=== PATIENT | female | born 1995 | race Two or more races ===

== ENCOUNTER 2019-02-24 13:15 | Emergency (ER) | payer OTHER ==
[~2019-02-24] VITALS: Ht 152.4 cm; Wt 64.4 kg
== END 2019-02-24 16:17 | disposition home or self-care (01) ==
LOC: ER 13:15
DX: B37.3 Candidiasis of vulva and vagina (principal); N39.0 Urinary tract infection, site not specified

== ENCOUNTER → 2019-05-19 | Emergency (ER) | payer OTHER ==
[~2019-05-19] VITALS: Ht 152.4 cm; Wt 63.5 kg
[~2019-05-19] MED LIST: TUSNEL LIQUID178 ML PO; ZITHROMAX500 MG PO
== END | disposition home or self-care (01) ==
LOC: ER 00:03
DX: J45.998 Other asthma (principal)

== ENCOUNTER 2022-10-17 02:48 | Emergency (ER) | payer OTHER ==
[~2022-10-17] VITALS: Ht 152.4 cm; Wt 67.1 kg
[2022-10-17] MEDS ORDERED: CEPHALEXIN500 MG PO (03:46)
[2022-10-17] MEDS ORDERED: CLOTRIMAZOLE30 ML TOP (03:46)
[2022-10-17] MEDS ORDERED: KETO10TA2 PO ×2 (03:46)
== END 2022-10-17 03:50 | disposition home or self-care (01) ==
LOC: ER 02:48
DX: M79.644 Pain in right finger(s) (principal)

== ENCOUNTER 2023-05-12 08:34 | Emergency (ER) | payer OTHER ==
[~2023-05-12] VITALS: Ht 152.4 cm; Wt 68.0 kg
[~2023-05-12 08:34] MED LIST changes: +CEPHALEXIN500 MG PO; +CLOTRIMAZOLE30 ML TOP; +KETO10TA2 PO
== END 2023-05-12 09:53 | disposition home or self-care (01) ==
LOC: ER 08:34
DX: T78.3XXA Angioneurotic edema, initial encounter (principal)

== ENCOUNTER 2024-04-11 18:10 | Emergency (ER) | payer OTHER ==
[~2024-04-11] VITALS: Ht 152.4 cm; Wt 68.9 kg
[2024-04-11] MEDS ORDERED: METHYLPREDNISOLONE SOD SUCC 40 MG VIAL ONE (18:42)
[2024-04-11] MEDS ORDERED: LEVALBUTEROL HCL 0.63 MG/3 ML SOLUTION IH ONE ×2 (18:45→18:57)
[2024-04-11] MEDS ORDERED: BENZONATATE 100 MG CAPSULE PO ONE (18:45)
[2024-04-11] MEDS ORDERED: METHYLPREDNISOLONE SOD SUCC 40 MG VIAL IM ONE (18:45)
[2024-04-11 18:54] LABS: HEMATOCRIT 40.1 % (36.0-45.00); HEMOGLOBIN 13.9 g/dL (12.0-15.00); MEAN CELL VOLUME 88.8 fL (80.00-100.00); MEAN CORPUSCULAR HEMOGLOBIN 30.9 pg (27.00-32.0); MEAN CORPUSCULAR HGB CONC 34.8 g/dl (32.0-36.0); PLATELET COUNT 291 K/uL (150-450); RED BLOOD COUNT 4.52 M/uL (4.00-6.00); RED CELL DISTRIBUTION WIDTH 12.6 % (11.5-14.5)
[2024-04-11] MEDS ORDERED: BENZONATATE200 M1 PO (19:58)
[2024-04-11] MEDS ORDERED: LEVALBUTER0.63 MG/3 IH (19:58)
[2024-04-11] MEDS ORDERED: MONTELUKAST SODI4 M1 PO (19:58)
== END 2024-04-11 20:12 | disposition home or self-care (01) ==
LOC: ER 18:12
PROVIDERS: General Practice
DX: J00 Acute nasopharyngitis [common cold] (principal); Z88.8 Allergy status to other drugs, medicaments and biological substances; J45.909 Unspecified asthma, uncomplicated; Z20.822 Contact with and (suspected) exposure to COVID-19
CPT/HCPCS: 36415; 94640; 96372; 99283; J3490

== ENCOUNTER 2025-05-22 15:24 | Emergency (ER) | payer OTHER ==
[~2025-05-22] VITALS: Ht 152.4 cm; Wt 68.0 kg
[~2025-05-22 15:24] MED LIST changes: +BENZONATATE200 M1 PO; +LEVALBUTER0.63 MG/3 IH; +MONTELUKAST SODI4 M1 PO
[2025-05-22] MEDS ORDERED: CETIRIZINE HCL 10 MG TABLET PO ONE (16:30)
[2025-05-22] MEDS ORDERED: RINGERS SOLUTION,LACTATED 1,000 ML IV ONE (16:30)
[2025-05-22] MEDS ORDERED: IPRATROPIUM BROMIDE 0.5 MG/2.5 ML AMPUL.NEB IH ONE ×2 (16:30→17:30)
[2025-05-22] MEDS ORDERED: CETIRIZINE HCL 5MG/5ML BLIST.PACK PO ONE (16:57)
[2025-05-22 17:20] LABS: BASO % 0.6 % (0.1-1.2); EOS # 0.13 (0.04-0.54); EOS % 1.6 % (0.7-7.0); LYMPH # 1.28 (1.18-3.74); LYMPH % 15.3 % (19.3-53.1); MEAN PLATELET VOLUME 9.70 fl (9.4-12.4); MONO # 1.12 (0.24-0.82); NEUT # 5.78 (1.56-6.13); NEUT % 68.9 % (34.0-71.1); RED CELL DISTRIBUTION WIDTH 12.1 % (11.6-14.4)
[2025-05-22] MEDS ORDERED: LEVALBUTEROL HCL 1.25 MG/3 ML SOLUTION IH ONE (17:30)
[2025-05-22 17:31] LABS: MONO % 13.4 % (4.7-12.5)
[2025-05-22 17:50] LABS: ALT/SGPT 44.0 U/L (12-78); AST/SGOT 28.0 U/L (15-37); BILIRUBIN TOTAL 0.33 mg/dL (0.3-1.2); BUN CREA RATIO 6.0 (7.0-25.0); CREATININE SERUM 0.99 mg/dL (0.55-1.02); GFR 66.79; GLOBULINA 4.4 G/DL (2.4-3.5); GLUCOSE FASTING 94.0 mg/dL (65-100); OSMOLALITY SERUM 277.0 MOSM/KG (275-295)
[2025-05-22 18:24] LABS: COVID-19 AG NEGATIVE (NEGATIVE)
[2025-05-22] MEDS ORDERED: ALLERGY RELIE15.8 ML NASAL (19:41)
[2025-05-22] MEDS ORDERED: ZYRTEC10 MG PO (19:41)
[2025-05-22] MEDS ORDERED: ZITHROMAX TRI-500 MG PO (19:41)
== END 2025-05-22 20:36 | disposition home or self-care (01) ==
LOC: ER 15:25
PROVIDERS: Student in an Organized Health Care Education/Training Program
DX: B34.9 Viral infection, unspecified (principal); J01.90 Acute sinusitis, unspecified; Z20.822 Contact with and (suspected) exposure to COVID-19

== ENCOUNTER 2025-06-05 08:18 | Emergency (ER) | payer OTHER ==
[~2025-06-05] VITALS: Ht 152.4 cm; Wt 68.0 kg
[~2025-06-05 08:18] MED LIST changes: +ALLERGY RELIE15.8 ML NASAL; +ZITHROMAX TRI-500 MG PO; +ZYRTEC10 MG PO
[2025-06-05] MEDS ORDERED: FAMOtidine 10 MG/ML (4ML VIAL) IV ONE (09:15)
[2025-06-05] MEDS ORDERED: 0.9 % SODIUM CHLORIDE 1,000 ML IV ONE (09:15)
[2025-06-05] MEDS ORDERED: ONDANSETRON HCL 2 MG/ML VIAL IV ONE (09:15)
[2025-06-05] MEDS ORDERED: KETOROLAC TROMETHAMINE 30 MG VIAL IV ONE (09:15)
[2025-06-05 09:28] LABS: BASO % 0.3 % (0.1-1.2); EOS # 0.05 (0.04-0.54); EOS % 0.3 % (0.7-7.0); LYMPH # 0.44 (1.18-3.74); LYMPH % 2.9 % (19.3-53.1); MEAN PLATELET VOLUME 9.70 fl (9.4-12.4); MONO # 0.65 (0.24-0.82); MONO % 4.3 % (4.7-12.5); NEUT # 13.77 (1.56-6.13); NEUT % 91.7 % (34.0-71.1); RED CELL DISTRIBUTION WIDTH 11.7 % (11.6-14.4)
[2025-06-05 09:56] LABS: INR 1.04
[2025-06-05 09:57] LABS: URINE APPEARANCE Clear; URINE BILIRRUBIN Negative (NEGATIVE); URINE BLOOD Large; URINE COLOR Yellow; URINE GLUCOSE Negative (NEGATIVE); URINE KETONE Trace (NEGATIVE); URINE LEUKOCYTE Trace; URINE NITRATE Negative; URINE PROTEIN Negative (NEGATIVE); URINE UROBILINOGEN 1.0 E.U./dl
[2025-06-05 09:59] LABS: ALT/SGPT 49 U/L (12-78); AST/SGOT 25 U/L (15-37); BILIRUBIN TOTAL 1.29 mg/dL (0.3-1.2); BUN CREA RATIO 16 (7.0-25.0); CREATININE SERUM 0.83 mg/dL (0.55-1.02); GFR 81.86; GLOBULINA 4.3 G/DL (2.4-3.5); GLUCOSE FASTING 121 mg/dL (65-100); OSMOLALITY SERUM 275 MOSM/KG (275-295)
[2025-06-05 10:01] LABS: URINE BACTERIA 279.5 uL (0.0-1933); URINE EPITHELIAL CELLS 33.9 uL (0.0-38.8); URINE RBC 8.2 uL (0.0-20.8); URINE WBC 11.0 uL (0.0-23.2)
[2025-06-05 10:02] LABS: HCG QUANTITATIVE < 1 mUI/mL (1-3)
[2025-06-05 10:09] LABS: URINE CAST 0.00 uL (0.0-1.40)
[2025-06-05] MEDS ORDERED: DIATRIZOATE MEGLUMINE, SODIUM 30 ML BOTTLE PO ONE (11:30)
[2025-06-05] MEDS ORDERED: CIPROFLOXACIN IN 5 % DEXTROSE 400 MG/200 ML PIGGYBAG IV ONE (11:30)
[2025-06-05] MEDS ORDERED: PROMETHAZINE HCL 50 MG/ML AMPUL IM ONE (13:30)
[2025-06-05] MEDS ORDERED: METRONIDAZOLE/SODIUM CHLORIDE 500 MG/100 ML PIGGYBACK IV ONE (17:15)
[2025-06-05] MEDS ORDERED: MORPHINE SULFATE 4 MG/ML CARTRIDGE IV ONE (17:15)
[2025-06-05] MEDS ORDERED: LACTOBACILLUS ACIDOPHILUS 1 CAP CAP PO ONE (17:15)
== END 2025-06-05 19:18 | disposition home or self-care (01) ==
LOC: ER 08:19
PROVIDERS: General Practice
DX: K52.89 Other specified noninfective gastroenteritis and colitis (principal); R10.20 Pelvic and perineal pain unspecified side; Z88.8 Allergy status to other drugs, medicaments and biological substances